=== PATIENT | female | born 1950 | race Caucasian/White ===

== ENCOUNTER 2019-06-21 07:44 | Day surgery (SDC) | payer MEDICARE, OTHER ==
[~2019-06-21 07:44] MED LIST: ASPI325 PO; Antivert25 MG PO; EYE VITAMIN-MI1 EACH; IBUP800; METO50ER PO; METR70GEL; Ocuvite Softge1 EAC1 PO; PRIMROSE OIL; ZOLP5; Zofran Odt4 MG SL
[2019-07-28] MEDS ORDERED: LOSA25 PO (16:14)
[2019-07-28] MEDS ORDERED: VITAMIN D31 ML PO (16:14)
[2019-07-28] MEDS ORDERED: ZOLP5 PO (16:14)
[2019-07-28] MEDS ORDERED: Pataday2.5 ML (16:14)
[2019-07-28] MEDS ORDERED: OCUVITE (16:16)
[2019-07-28] MEDS ORDERED: ATOR10 PO (16:16)
[2019-07-28] MEDS ORDERED: PARO10 PO (16:17)
[2019-07-28] MEDS ORDERED: CALCIUM W/D3 (16:18)
[2019-07-28] MEDS ORDERED: IBUPROFEN (16:18)
[2019-07-28] MEDS ORDERED: MONT10T PO (16:24)
[2019-07-28] MEDS ORDERED: ESTRADIOL VAG CREAM (16:26)
[2019-07-28] MEDS ORDERED: DICLOFENAC SOD100 G1 (16:26)
[2019-07-28] MEDS ORDERED: MOTION RELIEF25 MG PO (16:27)
[2019-07-28] MEDS ORDERED: DIAZ2 PO (16:28)
== END 2019-06-21 22:55 | disposition home or self-care (01) ==
LOC: MOI US 07:44
DX: C50.811 Malignant neoplasm of overlapping sites of right female breast (principal); N64.1 Fat necrosis of breast; R92.0 Mammographic microcalcification found on diagnostic imaging of breast; Z17.0 Estrogen receptor positive status [ER+]
CPT/HCPCS: 19083; 77065; 88305; 88342; 88360; A4648

== ENCOUNTER 2019-07-30 05:51 | Day surgery (SDC) | payer MEDICARE, OTHER ==
[~2019-07-30] VITALS: Ht 154.9 cm; Wt 55.0 kg
[~2019-07-30 05:51] MED LIST changes: +ATOR10 PO; +CALCIUM W/D3; +DIAZ2 PO; +DICLOFENAC SOD100 G1; +ESTRADIOL VAG CREAM; +IBUPROFEN; +LOSA25 PO; +MONT10T PO; +MOTION RELIEF25 MG PO; +OCUVITE; +PARO10 PO; +Pataday2.5 ML; +VITAMIN D31 ML PO; +ZOLP5 PO
--- NOTE | 2019-07-30 06:37 | NUR ---
ADMISSION TO UNIT STARTED, WENT HOME AND IS EXPECTION CALL FROM DOCTOR AFTER SURGERY PLAN IS FOR TO RETURN ABOUT 1 HOUR AFTER PHONE CALL.
--- NOTE | 2019-07-30 09:30 | NUR ---
"DAY SURGERY RN | DISCHARGE VSS. A/O. DENIES PAIN AND NAUSEA. DISCHARGE INSTRUCTIONS GIVEN TO PATIENT. NO RX. IS RIDE HOME. STEADY ON FEET. NO ISSUES. TAKEN TO FRONT ENTRANCE BY VOLUNTEER IN WHEELCHAIR."
== END 2019-07-30 23:19 | disposition home or self-care (01) ==
LOC: ORSCMMR 05:51 → ORD 07:30 → ORSCMMR 07:30
PROVIDERS: Surgery
PROC: B5141ZA Fluoroscopy of Left Jugular Veins using Low Osmolar Contrast, Guidance (ICD-10-PCS; principal; 2019-07-30 07:30)
PROC: 05HN33Z Insertion of Infusion Device into Left Internal Jugular Vein, Percutaneous Approach (ICD-10-PCS; principal; 2019-07-30 07:30)
DX: D05.11 Intraductal carcinoma in situ of right breast (principal); I10 Essential (primary) hypertension; I48.91 Unspecified atrial fibrillation; Z79.899 Other long term (current) drug therapy
CPT/HCPCS: 77001; C1788; J0690; J1100; J1642; J2250; J2405; J3010; J7120

== ENCOUNTER → 2022-04-10 | Outpatient (CLI) | payer MEDICARE, OTHER | END | disposition home or self-care (01) | LOC: LAB SHORT 15:12 → PLD 15:12 | DX: L82.1 Other seborrheic keratosis (principal) | CPT/HCPCS: 88305 ==

== ENCOUNTER → 2022-04-24 | Outpatient (CLI) | payer MEDICARE, OTHER | END | disposition home or self-care (01) | LOC: LAB SHORT 15:30 → LAB 15:30 | DX: R30.9 Painful micturition, unspecified (principal) | CPT/HCPCS: 87086 ==

== ENCOUNTER → 2022-07-21 | Outpatient (CLI) | payer MEDICARE, OTHER | END | disposition home or self-care (01) | LOC: LAB 12:34 → LAB SHORT 12:34 | DX: N39.0 Urinary tract infection, site not specified (principal) | CPT/HCPCS: 87086 ==

== ENCOUNTER → 2022-08-22 | Outpatient (CLI) | payer MEDICARE, OTHER | LOC: LAB SHORT 15:40 → LAB 15:40 | DX: N39.0 Urinary tract infection, site not specified (principal) | CPT/HCPCS: 87086 ==

== ENCOUNTER 2023-07-15 21:17 | Observation (INO) | payer MEDICARE, OTHER ==
[~2023-07-15] VITALS: Ht 154.9 cm; Wt 49.8 kg
[2023-07-15] MEDS ORDERED: PRASTERONE (22:01)
[2023-07-15] MEDS ORDERED: MYRBETRIQ25 MG PO (22:05)
[2023-07-15] MEDS ORDERED: TAMO10 PO (22:06)
[2023-07-15] MEDS ORDERED: TIZA4 PO (22:07)
[2023-07-15] MEDS ORDERED: ZOLEDRONIC ACID4 M1 (22:08)
[2023-07-15] MEDS ORDERED: CRANBERRY125 MG PO (22:08)
[2023-07-16] VITALS (15 sets, daily range): BP systolic 118–180; BP diastolic 57–84
--- NOTE | 2023-07-16 05:01 | NUR ---
SHIFT SUMMARY PATIENT ADMITTED TO UNIT FROM ED AROUND 0210 FOR GALLSTONES AND PLAN IS FOR GALLBLADDER REMOVAL. PATIENT A/, ORIENTED TO ROOM, CALL LIGHT WITHIN REACH. AMBULATES INDEPENDENTLY. PAIN UNDER CONTROL, IS AT 4/10 ON ARRIVAL TO UNIT. MEDICATED BEFORE TRANSFER TO UNIT WITH TORADOL. CLARIFIED CODE STATUS WITH PATIENT, SHE WANTS TO BE DNR. DR. RIVERA CALLED TO CHANGE CODE STATUS IN CHART. TELEPHONE ORDER RECIEVED TO CAMILO. PATIENTS SKIN INTACT. PATIENT HAS BEEN NPO SINCE MIDNIGHT.
[2023-07-16 06:11] LABS: BASOPHILS ABSOLUTE AUTO 0.03 K/mm3 (0.00-0.23); BASOPHILS PERCENT AUTO 0 % (0-2); EOSINOPHILS ABSOLUTE AUTO 0.13 K/mm3 (0.00-0.68); EOSINOPHILS PERCENT AUTO 1 % (0-6); Hematocrit 38.5 % (33.0-51.0); IMMATURE GRAN ABSOLUTE AUTO 0.04 K/mm3 (0.00-0.10); IMMATURE GRAN PERCENT AUTO 0 % (0-1); LYMPHOCYTES ABSOLUTE AUTO 2.07 K/mm3 (0.84-5.20); LYMPHOCYTES PERCENT AUTO 23 % (21-46); MONOCYTES ABSOLUTE AUTO 0.83 K/mm3 (0.16-1.47); MONOCYTES PERCENT AUTO 9 % (4-13); Mean Corpuscular HGB 30.2 pg (26.0-34.0); Mean Corpuscular HGB Conc 33.8 g/dL (31.5-36.5); Mean Corpuscular Volume 90 fL (80-100); NEUTROPHILS ABSOLUTE AUTO 6.04 K/mm3 (1.96-9.15); NEUTROPHILS PERCENT AUTO 66 % (41-73); Platelet Count 270 K/mm3 (150-400); RDW Coefficient Variation 12.8 % (11.7-14.2); White Blood Cell Count 9.14 K/mm3 (4.00-11.30)
[2023-07-16 06:28] LABS: Albumin, Blood 3.2 g/dL (3.4-5.0); Bilirubin, Total 0.6 mg/dL (0.1-1.0); Bun/Creatinine Ratio 13.3 (12.0-20.0); Calcium, Blood 8.9 mg/dL (8.5-10.1); Creatinine, Blood 0.83 mg/dL (0.40-1.00); Globulin, Blood 3.3 g/dL (2.2-4.0); Magnesium, Blood 2.2 mg/dL (1.6-2.4); Phosphorus, Blood 2.6 mg/dL (2.5-4.9); Potassium, Blood 4.3 mmol/L (3.5-5.5); Total Protein, Blood 6.5 g/dL (6.4-8.2)
--- NOTE | 2023-07-16 11:05 | NUR ---
Ambulatory in Day Surgery. Patient confirms NPO status and agrees with scheduled surgery. History, Chart, Medications and Allergies reviewed before start of procedure. Pre-Op teaching done. Pt verbalizes understanding.
--- NOTE | 2023-07-16 15:57 | NUR ---
Patient is sleeping, her , Art, is in the hallway and so we talk at length about her surgery, their family (son, and living in [place], and dtr, , three sons and living in [place]), and about their thoughts to possibly move to the [facility] in the near future. He shares about his interests and hobbies and about some mutuual friends that we share. I provide therapeutic listening and a calming presence. Art responded well to the visit and showed signs of an elevated mood.
--- NOTE | 2023-07-16 17:28 | NUR ---
SHIFT SUMMARY PATIENT MEDICATED FOR PAIN X2. PATIENT DENIES NAUSEA AND SHORTNESS OF BREATH. PATIENT A&O X4. PATIENT IS IND IN THE ROOM. PATIENT VISITED IN AFTERNOON. PATIENT TAKEN TO SURGERY AT 1100, BACK TO ROOM AT 1330. DRESSING TO LAP SITES C/D/I. PER DR. NELSON, PATIENT ABLE TO EAT. PATIENT TOELRATED FOOD THIS AFTERNOON. PATIENT USES CALL LIGHT APPROPRIATELY. PATIENT IS PLEASANT AND COOPERATIVE WITH CARE.
[2023-07-17 03:37] VITALS: BP 170/76
[2023-07-17 05:55] VITALS: BP 122/60
--- NOTE | 2023-07-17 07:37 | NUR ---
SHIFT SUMMARY A/OX4 , INDEPENDENT IN ROOM, ROOM AIR. 4 LAP SITES TO ABDOMEN CDI. PRN ROXYCODONE GIVEN X2. NO BM OVERNIGHT. SCD'S WORN OVERNIGHT.
[2023-07-17 07:45] VITALS: BP 133/71
== END 2023-07-17 13:30 | disposition home or self-care (01) ==
LOC: ER 21:17 → MEDS 21:18 → ER 07-16 01:49 → MEDS 07-16 01:49 → ENPENDDIS 07-17 12:00 → MEDS 07-17 13:30
PROVIDERS: Family Medicine; ADMIT Internal Medicine
DX: K80.12 Calculus of gallbladder with acute and chronic cholecystitis without obstruction (principal); R93.5 Abnormal findings on diagnostic imaging of other abdominal regions, including retroperitoneum; I10 Essential (primary) hypertension; F17.200 Nicotine dependence, unspecified, uncomplicated; Z66 Do not resuscitate; Z85.3 Personal history of malignant neoplasm of breast; Z90.11 Acquired absence of right breast and nipple; Z88.2 Allergy status to sulfonamides; Z88.8 Allergy status to other drugs, medicaments and biological substances; Z79.899 Other long term (current) drug therapy; R10.9 Unspecified abdominal pain; R89.9 Unspecified abnormal finding in specimens from other organs, systems and tissues; R93.89 Abnormal findings on diagnostic imaging of other specified body structures; M70.62 Trochanteric bursitis, left hip
CPT/HCPCS: 36415; 74022; 74177; 76705; 76770; 80053; 82550; 83690; 83735; 84100; 85025; 88304; 93005; 93010; 96374-59; 96375; 99285-25; A9270; G0008; G0378; J0694; J1100; J1650; J1885; J2371; J2405; J2704; J3010; J7120; Q2036; Q9967

== ENCOUNTER → 2023-10-22 | Outpatient (CLI) | payer MEDICARE, OTHER ==
[~2023-10-22] MED LIST changes: +CRANBERRY125 MG PO; +MYRBETRIQ25 MG PO; +PRASTERONE; +TAMO10 PO; +TIZA4 PO; +ZOLEDRONIC ACID4 M1
== END ==
LOC: LAB 13:06 → LAB SHORT 13:06
DX: R30.0 Dysuria (principal)
CPT/HCPCS: 87086

== ENCOUNTER 2023-11-20 08:13 | Day surgery (SDC) | payer MEDICARE, OTHER ==
[~2023-11-20] VITALS: Ht 154.9 cm; Wt 50.0 kg
[~2023-11-20 08:13] MED LIST changes: +Lactated Ringer's 1,000 ML IV ONE
[2023-11-20] MEDS ORDERED: NS 50 ML IV ONE (08:19)
[2023-11-20] MEDS ORDERED: CeFAZolin Sodium 2,000 MG VIAL ONE (08:19)
[2023-11-20] MEDS ORDERED: Midazolam HCl 1MG / ML 2ML Vial ONE (08:26)
[2023-11-20] MEDS ORDERED: FentaNYL Citrate 50 MCG/ML 2 ML Injection ONE (08:26)
[2023-11-20] MEDS ORDERED: propofoL 20 ML IV ONE (08:26)
[2023-11-20] MEDS ORDERED: Ondansetron HCl 2 MG / ML 2ML Vial ONE (08:30)
[2023-11-20] MEDS ORDERED: Dexamethasone Sod Phos 10 MG/ML 1ML VIAL ONE (08:30)
[2023-11-20] MEDS ORDERED: Ketorolac Tromethamine 30mg Vial ONE (08:31)
[2023-11-20] MEDS ORDERED: PRASTERONE (08:44)
[2023-11-20] MEDS ORDERED: Lactated Ringer's 1,000 ML IV ONE (08:54)
--- NOTE | 2023-11-20 09:50 | NUR ---
11/20/23 0950 Thais Pepe ARMS SECURED ON PADDED ARM BOARDS, ARACELI CONTEH, HEAD ON PILLOW.
--- NOTE | 2023-11-20 10:22 | NUR ---
11/20/23 1022 GABRIELA WASSERMAN PT DENIES PAIN, NAUSEA, OR CHILLS. FALLS BACK TO SLEEP EASILY.
[2023-11-20 10:32] VITALS: BP 128/86
--- NOTE | 2023-11-20 10:32 | NUR ---
11/20/[address] WONDERLY WAS IN TO SEE PT WHEN OUT OF PACU.
== END 2023-11-20 11:11 | disposition home or self-care (01) ==
LOC: ORSCSDS 08:13
PROVIDERS: Obstetrics & Gynecology
PROC: 0UDB8ZX Extraction of Endometrium, Via Natural or Artificial Opening Endoscopic, Diagnostic (ICD-10-PCS; principal; 2023-11-20 09:30)
DX: N84.0 Polyp of corpus uteri (principal); N95.2 Postmenopausal atrophic vaginitis; I10 Essential (primary) hypertension; I48.0 Paroxysmal atrial fibrillation; Z79.899 Other long term (current) drug therapy
CPT/HCPCS: 88305; J0690; J1100; J1885; J2250; J2405; J2704; J3010; J7120